=== PATIENT | male | born 1970 | race Two or more races ===

== ENCOUNTER 2022-02-24 05:52 | Day surgery (SDC) | payer OTHER ==
[2022-02-24 07:31] VITALS: BMI 27.9
[2022-02-24 08:45] VITALS: TEMP 96.6
[2022-02-24 14:27] VITALS: BP 120/78; PULSE 63; RESP 18
== END 2022-02-24 10:00 | disposition home or self-care (01) ==
LOC: JASU-ENDO 05:52
PROVIDERS: ATTEND Student in an Organized Health Care Education/Training Program
PROC: 0DBP8ZX Excision of Rectum, Via Natural or Artificial Opening Endoscopic, Diagnostic (ICD-10-PCS; principal; 2022-02-24 08:30)
DX: Z12.11 Encounter for screening for malignant neoplasm of colon (principal); K64.8 Other hemorrhoids
CPT/HCPCS: 88305-TC